=== PATIENT | male | born 1970 | race American Indian/Alaskan Native ===

== ENCOUNTER 2020-12-17 08:04 | Emergency (ER) | payer BC ==
[2020-12-17 08:16] VITALS: BP 149/65
--- NOTE | 2020-12-17 10:09 | Emergency Department Report ---
Upper Extremity - HPI Chief Complaint: Back Pain/Injury Stated Complaint: BACK/RT SIDE PAIN Time Seen by Provider: 12/17/20 09:59 Upper Extremity: Right Shoulder Occurred When: >5 Days (2 weeks) Symptoms: Yes Pain with Movement, No Deformity, No Limited Range of Movement, No Numbness, No Weakness, No Swelling, No Bruising/Ecchymosis, No Laceration or Abrasion Other History: 50-year-old male with past history of tobacco use but no other significant past history presents to the ER today with complaints of pain to his right posterior shoulder/right trapezius/right upper back area. Patient states that has been having this pain for the past 2 weeks. He denies any particular injury or trauma but states that he does do lots of lifting at work. He states that the pain sometimes radiates down into his right arm and sometimes feels sharp pain into his right chest. He states that the pain is worse with movement of his neck and movement of his right arm. He denies any numbness, tingling or weakness to his right upper extremity, he denies any shortness of breath, cough or wheezing. He denies any associated headache, URI symptoms, fever or chills. He states that his been taking Motrin 200 mg for the pain without much relief. ED Review of Systems ROS: Stated complaint: BACK/RT SIDE PAIN Other details as noted in HPI Comment: All other systems reviewed and negative Constitutional: denies: chills, fever Eyes: denies: eye pain, eye discharge, vision change ENT: denies: ear pain, throat pain Respiratory: denies: cough, shortness of breath, SOB with exertion, SOB at rest, wheezing Cardiovascular: denies: chest pain, palpitations, dyspnea on exertion, edema, syncope, paroxysmal nocturnal dyspnea Gastrointestinal: denies: abdominal pain, nausea, diarrhea, constipation, hematemesis, hematochezia Genitourinary: denies: urgency, dysuria, frequency, hematuria, discharge, testicular pain, testicular mass Musculoskeletal: arthralgia. denies: back pain, joint swelling, myalgia Skin: denies: rash, lesions, change in color, change in hair/nails, pruritus Neurological: denies: headache, weakness, paresthesias, abnormal gait, vertigo Psychiatric: denies: anxiety, depression, auditory hallucinations, visual hallucinations, homicidal thoughts, suicidal thoughts Hematological/Lymphatic: denies: easy bleeding, easy bruising ED Past Medical Hx - Medications Home Medications: Home Medications Medication Instructions Recorded Confirmed Last Taken Type Ketorolac [Toradol] 10 mg PO Q6H PRN #20 tablet 12/17/20 Unknown Rx methOCARBAMOL [Robaxin TAB] 750 mg PO Q8H PRN #30 tablet 12/17/20 Unknown Rx Upper Extremity Exam - Exam General: Vital signs noted. No distress. Alert and acting appropriately. Head and Torso: Yes Neck Tenderness (No cervical spine tenderness or paraspinal muscle tenderness to the posterior neck but he does have moderate right trapezius muscle tenderness with muscle spasms noted.), No HEENT Abnormality, No Chest/Lungs Abnormality, No Abdominal Tenderness, No Back Tenderness Shoulder Exam: Yes Shoulder Tenderness (Mild tenderness to palpation over the right scapula; shoulder joints does not appear to have any tenderness to palpation), Yes Normal Range of Motion in Shoulder, No Clavicle Tenderness, No Shoulder Deformity, No AC Joint Tenderness Arm Exam: No Arm/Humerus Tenderness, No Arm Deformity Elbow: Yes Normal Range of Motion in Elbow, No Elbow Tenderness, No Elbow Deformity Forearm: No Forearm Tenderness, No Forearm Deformity, No Pain with Pronation, No Pain with Supination Wrist: Yes Normal ROM in Wrist, No Wrist Tenderness, No Wrist Deformity, No Snuffbox Tenderness, No Pain with Axial Thumb Compression Hand: Yes Normal ROM in Digit(s), No Hand Tenderness, No Hand Deformity, No Digit Tenderness, No Digit(s) Deformity, No Tendon Dysfunction CMS Exam: Yes Normal Distal Pulses, Yes Normal Capillary Refill, Yes Normal Distal Sensation, No Broken Skin ED Course Vital Signs 12/17/20 08:14 Temperature 98.2 F Pulse Rate 61 Respiratory 18 Rate Blood Pressure 149/65 O2 Sat by Pulse 99 Oximetry ED Medical Decision Making - Radiology Data Radiology results: report reviewed Downtime preliminary x-ray report: No acute findings. S-shaped curvature of the spine. Per radiologist Critical care attestation.: If time is entered above; I have spent that time in minutes in the direct care of this critically ill patient, excluding procedure time. ED Disposition Clinical Impression: Trapezius muscle spasm, Chest wall pain Disposition: TO HOME OR SELFCARE Is pt being admited?: No Does the pt Need Aspirin: No Condition: Stable Instructions: Muscle Cramps and Spasms, Chest Wall Pain, [id number], Nonspecific Chest Pain, Adult Additional Instructions: Recommend that you take the Toradol and the muscle relaxer as prescribed. Follow-up with the primary care doctor listed on your discharge instructions. Return to the ER if your symptoms changes or worsens in any way. Prescriptions: methOCARBAMOL [Robaxin TAB] 750 mg PO Q8H PRN #30 tablet PRN Reason: Spasms Ketorolac [Toradol] 10 mg PO Q6H PRN #20 tablet PRN Reason: Pain Referrals: MELANIE ORNELAS MD [Staff Physician] - 3-5 Days Forms: Work/School Release Form(ED) Time of Disposition: 12:56
[2020-12-17] MEDS ORDERED: ACETAMINOPHEN 500 MG TAB PO ONE (11:01)
[2020-12-17] MEDS ORDERED: KETOROLAC 10 MG TAB PO ONE (11:01)
--- NOTE | 2020-12-17 17:56 | XRay Report ---
CHEST 2 VIEWS INDICATION / CLINICAL INFORMATION: sharp pain in chest. COMPARISON: None available. FINDINGS: SUPPORT DEVICES: None. HEART / MEDIASTINUM: No significant abnormality. LUNGS / PLEURA: No significant pulmonary abnormality. No significant pleural effusion. No pneumothora x. ADDITIONAL FINDINGS: There is moderate thoracolumbar scoliosis. IMPRESSION: 1. No acute abnormality of the chest. Signer Name: Talha Lopez MD Signed: 12/17/2020 5:52 PM Workstation Name: [id number]
== END 2020-12-17 13:07 | disposition home or self-care (01) ==
LOC: ED 08:04
DX: R07.89 Other chest pain (principal); M54.6 Pain in thoracic spine; M62.838 Other muscle spasm; Z79.899 Other long term (current) drug therapy
CPT/HCPCS: 71046

== ENCOUNTER 2021-11-13 09:03 | Emergency (ER) | payer BC, OTHER ==
[2021-11-13 09:10] VITALS: BP 137/66
--- NOTE | 2021-11-13 09:31 | XRay Report ---
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 Advanced degenerative change of the distal ulna and distal radioulnar joint. Mild diffuse soft tissue swelling. IMPRESSION: Advanced degenerative changes seen within the distal radius and distal ulna. 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 Degenerative changes seen in the distal scaphoid and base of the thumb as well. No displace d fractures seen however correlation with area of tenderness and pain. Signer Name: Randy Smith MD Signed: 11/13/2021 9:27 AM Workstation Name: [id number]
[2021-11-13] MEDS ORDERED: traMADol 50 MG TAB PO ONE (09:48)
--- NOTE | 2021-11-13 10:05 | Emergency Department Report ---
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 Now with pain swelling and aching. Pain rated at 5/10 exacerbated by movement. There is no numbness no tingling no paralysis. There is no abrasion no laceration no open wound. There are no relieving factors to this point. ED Review of Systems ROS: Stated complaint: RT WRIST INJURY Other details as noted in HPI Constitutional: denies: chills, fever Eyes: denies: eye pain, eye discharge, vision change ENT: denies: ear pain, throat pain Respiratory: denies: cough, shortness of breath, wheezing Cardiovascular: denies: chest pain, palpitations Endocrine: no symptoms reported Gastrointestinal: denies: abdominal pain, nausea, diarrhea Genitourinary: denies: urgency, dysuria Musculoskeletal: arthralgia, other (Right wrist pain) Skin: denies: rash, lesions Neurological: denies: headache, weakness, paresthesias Psychiatric: denies: anxiety, depression Hematological/Lymphatic: denies: easy bleeding, easy bruising ED Past Medical Hx - Medications Home Medications: Home Medications Medication Instructions Recorded Confirmed Last Taken Type Ketorolac [Toradol] 10 mg PO Q6H PRN #20 tablet 12/17/20 Unknown Rx methOCARBAMOL [Robaxin TAB] 750 mg PO Q8H PRN #30 tablet 12/17/20 Unknown Rx Acetaminophen/Codeine [Tylenol 1 tab PO Q6H PRN #12 tab 11/13/21 Unknown Rx /Codeine # 3 tab] Naproxen 500 mg PO BID PRN #30 tab 11/13/21 Unknown Rx Upper Extremity Exam - Exam General: Vital signs noted. No distress. Alert and acting appropriately. Head and Torso: No HEENT Abnormality, No Neck Tenderness, No Chest/Lungs Abnormality, No Abdominal Tenderness, No Back Tenderness Shoulder Exam: Yes Normal Range of Motion in Shoulder, No Shoulder Tenderness, No Clavicle Tenderness, No Shoulder Deformity, No AC Joint Tenderness Arm Exam: No Arm/Humerus Tenderness, No Arm Deformity Elbow: No Elbow Tenderness, No Normal Range of Motion in Elbow, No Elbow Deformity Forearm: No Forearm Tenderness, No Forearm Deformity, No Pain with Pronation, No Pain with Supination Wrist: Yes Wrist Tenderness, Yes Normal ROM in Wrist, No Wrist Deformity, No Snuffbox Tenderness, No Pain with Axial Thumb Compression Hand: Yes Normal ROM in Digit(s), No Hand Tenderness, No Hand Deformity, No Digit Tenderness, No Digit(s) Deformity, No Tendon Dysfunction CMS Exam: Yes Normal Distal Pulses, Yes Normal Capillary Refill, Yes Normal Distal Sensation, No Broken Skin ED Course Vital Signs 11/13/21 09:09 Temperature 97.7 F Pulse Rate 59 L Respiratory 20 Rate Blood Pressure 137/66 [Right] O2 Sat by Pulse 100 Oximetry ED Medical Decision Making - Radiology Data Radiology results: report reviewed, image reviewed Right wrist 3 views INDICATION: Wrist injury FINDINGS: 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 There is coalition of the lunate and triquetrum. Advanced degenerative change of the distal ulna and distal radioulnar joint. Mild diffuse soft tissue swelling. IMPRESSION: Advanced degenerative changes seen within the distal radius and distal ulna. 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 Degenerative changes seen in the distal scaphoid and base of the thumb as well. No displaced fractures seen however correlation with area of tenderness and pain. Signer Name: Randy Bolaños MD Signed: 11/13/2021 9:27 AM Workstation Name: [id number] Transcribed By: MARCUS Dictated By: JARROD BOLAÑOS MD Electronically Authenticated By: JARROD BOLAÑOS MD Signed Date/Time: 11/13/21926 DD/ 4 TD/TT: - Medical Decision Making X-ray right wrist diffuse degenerative changes. No acute fracture subluxation or dislocation. No soft tissue deformity. mild swelling. Exam no pain with simulated axial thumb loading. No xiphoid tenderness. There is generalized tenderness in the cross anterior wrist. Distal pulses remain intact [employer] less than 3 seconds bilateral, thumbs up, okay, finger cross are intact flexion extension intact to direct opposition. Diagnosis right wrist sprain, wrist splint Velcro applied, patient will DC to home with NSAIDs, rice therapy, follow-up with orthopedics in 2 to 3 days. Follow-up with primary care doctor in 2 to 3 days. Patient verbalized agreement understanding with discharge plan. Patient DC'd home in stable condition at this time. Critical care attestation.: If time is entered above; I have spent that time in minutes in the direct care of this critically ill patient, excluding procedure time. ED Disposition Clinical Impression: Right wrist sprain Qualifiers: Encounter type: initial encounter Qualified Code(s): S63.501A - Unspecified sprain of right wrist, initial encounter Disposition: HOME / SELF CARE / HOMELESS Is pt being admited?: No Does the pt Need Aspirin: No Condition: Stable Instructions: Wrist Sprain Rehab-SportsMed, Elastic Bandage and RICE Therapy Additional Instructions: Take medication as prescribed, use Velcro wrist splint as directed follow-up with your doctor in 2 to 3 days. Wrist exercises as directed. Return to emergency department if symptoms worsen Prescriptions: Naproxen 500 mg PO BID PRN #30 tab PRN Reason: pain Acetaminophen/Codeine [Tylenol /Codeine # 3 tab] 1 tab PO Q6H PRN #12 tab PRN Reason: pain Referrals: NAE SMITH MD [Staff Physician] - 3-5 Days STEFANI CASTILLO MD [Staff Physician] - 3-5 Days Forms: Work/School Release Form(ED) Time of Disposition: 10:08
== END 2021-11-13 10:38 | disposition home or self-care (01) ==
LOC: ED 09:03
DX: S63.501A Unspecified sprain of right wrist, initial encounter (principal); X58.XXXA Exposure to other specified factors, initial encounter; Y93.89 Activity, other specified; Y92.89 Other specified places as the place of occurrence of the external cause; Y99.0 Civilian activity done for income or pay
CPT/HCPCS: 99283